=== PATIENT | female | born 1945 | race Caucasian/White ===

== ENCOUNTER 2018-05-21 10:08 | Day surgery (SDC) | payer MEDICARE, BC ==
[~2018-05-21] VITALS: Ht 160 cm; Wt 70.3 kg
[2018-05-21] VITALS (12 sets, daily range): BP systolic 129–187; BP diastolic 63–131
[~2018-05-21 10:08] MED LIST: ASPI-1264 PO; NAPR220C15 PO; PER5325T PO
[2018-05-21] MEDS ORDERED: famotidine 20mg tablet PO ONE (10:30)
[2018-05-21] MEDS ORDERED: ringers solution, lacted 1,000 ML IV SCH ×2 (10:30→12:43)
[2018-05-21] MEDS ORDERED: LIDOcaine 1% (10mg/ml) 2ml vial ONE (10:37)
[2018-05-21] MEDS ORDERED: ceFOXitin 2 GM ADDvantage bag 100 ML IV ONE (10:45)
[2018-05-21] MEDS ORDERED: ceFAZolin 1000mg inj ONE (10:46)
[2018-05-21] MEDS ORDERED: BUPIVAcaine/PF 2.5mg/ml (0.25%) 10ml vial ONE (10:46)
[2018-05-21] MEDS ORDERED: fentaNYL/PF 50MCG/1 ML 2ML syringe ONE (11:47)
[2018-05-21] MEDS ORDERED: midazolam 2 mg/2 ml injection ONE (11:48)
[2018-05-21] MEDS ORDERED: ondansetron/PF 4mg/2ml inj ONE (11:49)
[2018-05-21] MEDS ORDERED: neostigmine methylsulfate 1 MG/ML 10ml vial ONE (11:49)
[2018-05-21] MEDS ORDERED: glycopyrrolate 0.2mg/ml inj ONE (11:49)
[2018-05-21] MEDS ORDERED: rocuronium 10mg/ml inj IV ONE (11:49)
[2018-05-21] MEDS ORDERED: propofol inj 20 ML IV ONE (11:50)
[2018-05-21] MEDS ORDERED: LIDOcaine 2% (20mg/ml) 5ml vial ONE (11:50)
[2018-05-21] MEDS ORDERED: dexamethasone sod phosphate 4mg/ml inj. ONE (11:50)
[2018-05-21] MEDS ORDERED: sevoflurane 250ml liquid IH ONE (12:20)
[2018-05-21] MEDS ORDERED: meperidine/PF 25mg/ml syringe IV PRN ×2 (12:45)
[2018-05-21] MEDS ORDERED: ondansetron/PF 4mg/2ml inj IV PRN (12:45)
[2018-05-21] MEDS ORDERED: hydrALAZINE 20mg/ml inj. IV PRN (12:45)
[2018-05-21] MEDS ORDERED: morphine 4 MG/ML inj SYRINge IV PRN ×2 (12:45)
[2018-05-21] MEDS ORDERED: enalaprilat dihydrate 2.5mg/2ml vial IV PRN (12:45)
[2018-05-21] MEDS ORDERED: labetalol 20mg/4ml (5mg/ml) syringe IV PRN (13:15)
== END 2018-05-21 14:48 | disposition home or self-care (01) ==
LOC: PAS 10:08
PROVIDERS: ATTEND Surgery
DX: K80.10 Calculus of gallbladder with chronic cholecystitis without obstruction (principal); D36.0 Benign neoplasm of lymph nodes; I25.2 Old myocardial infarction; E66.9 Obesity, unspecified; M19.90 Unspecified osteoarthritis, unspecified site; G89.29 Other chronic pain; F17.210 Nicotine dependence, cigarettes, uncomplicated; Z68.27 Body mass index [BMI] 27.0-27.9, adult; Z86.74 Personal history of sudden cardiac arrest; Z91.048 Other nonmedicinal substance allergy status; Z88.3 Allergy status to other anti-infective agents; Z72.89 Other problems related to lifestyle; Z90.710 Acquired absence of both cervix and uterus; Z95.5 Presence of coronary angioplasty implant and graft; Z79.82 Long term (current) use of aspirin; Z96.651 Presence of right artificial knee joint; Z98.41 Cataract extraction status, right eye; Z98.42 Cataract extraction status, left eye; Z90.49 Acquired absence of other specified parts of digestive tract; Z93.3 Colostomy status; Z79.899 Other long term (current) drug therapy; Z98.890 Other specified postprocedural states; Z83.6 Family history of other diseases of the respiratory system; Z80.1 Family history of malignant neoplasm of trachea, bronchus and lung; Z82.49 Family history of ischemic heart disease and other diseases of the circulatory system
CPT/HCPCS: 47562; 93005; J0690; J0694; J1100; J2001; J2250; J2405; J2704; J2710; J3010; J3490; J7120; 88304; A7000